=== PATIENT | male | born 2000 | race Caucasian/White ===

== ENCOUNTER 2020-08-09 19:58 | Emergency (ER) | payer SELFPAY ==
[~2020-08-09] VITALS: Ht 180.3 cm; Wt 67.7 kg
[2020-08-09] MEDS ORDERED: traMADol 50 MG TABLET PO ONE (20:30)
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
[2020-08-09] MEDS ORDERED: DIPH,PERTUSS(ACELL),TET VAC/PF 0.5 ML SYRINGE. VAX IM ONE (21:15)
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
[2020-08-09] MEDS ORDERED: LIDOCAINE/EPI/TETRACAINE TOPICAL GEL 3 ML. TP ONE (22:00)
[2020-08-09 22:45] VITALS: BP 108/54
[2020-08-09] MEDS ORDERED: TRAM-48 PO (22:50)
== END 2020-08-09 22:59 | disposition home or self-care (01) ==
LOC: ER 19:58
DX: S02.2XXA Fracture of nasal bones, initial encounter for closed fracture (principal); S01.111A Laceration without foreign body of right eyelid and periocular area, initial encounter; S01.81XA Laceration without foreign body of other part of head, initial encounter; R55 Syncope and collapse; M79.641 Pain in right hand; F31.9 Bipolar disorder, unspecified; F17.200 Nicotine dependence, unspecified, uncomplicated; Z88.0 Allergy status to penicillin; Z88.8 Allergy status to other drugs, medicaments and biological substances; Y08.89XA Assault by other specified means, initial encounter; Y93.89 Activity, other specified; Y92.89 Other specified places as the place of occurrence of the external cause; Y99.8 Other external cause status
CPT/HCPCS: 12013; 70450; 70486; 72125; 73130; 90471; 90715; 99285